=== PATIENT | male | born 1960 | race Caucasian/White ===

== ENCOUNTER 2017-05-12 15:56 | Emergency (ER) | payer OTHER ==
[~2017-05-12] VITALS: Ht 182.9 cm; Wt 154.2 kg
--- NOTE | ~2017-05-12 | EKG ---
[place] [address] [facility] [place] [address] ELECTROCARDIOGRAM REPORT Name: ELIEZER STEWART Room #: DEP VIPUL Munoz#: [id number] Admission: 05/12/17 Attend Phys: Discharge: 05/12/17 Date of : 62 Report #: [id number] THIS REPORT FOR: //name// [facility] ED Test Date: 2017-05-12 Test Time: 16:15:26 Pat Name: ELIEZER STEWART Department: Room: Gender: Crab Steamer: JULES : 1960 Requested By: Cullen Preciado Order Number: [id number] MD: Albert Chávez Measurements Intervals [place] Rate: 70 P: 17 NE: 45 QRS: 40 QRSD: 106 T: 38 QT: 383 QTc: 414 Interpretive Statements Sinus rhythm Short NE interval Probable anteroseptal infarct, old No previous ECG available for comparison Electronically Signed On 05-13-2017 7:54:32 CDT by Albert Chávez [email or web address] <ELECTRONICALLY SIGNED> By: Albert Chávez MD, [facility] 05/13/17 0754 1615 1615 Albert Chávez MD, FACC /EPI
[2017-05-12 16:32] LABS: HEMATOCRIT 40.5 % (42.0-52.0); HEMOGLOBIN 13.7 gm/dL (14.0-18.0); MCH 30.3 pg (26.0-34.0); MCHC 33.9 g/dL (28.0-37.0); MCV 89.3 fL (80.0-100.0); RBC 4.54 mil/uL (4.50-6.00); RDW 13.2 % (10.5-14.5); WBC 7.2 thou/uL (4.0-11.0)
[2017-05-12 16:47] LABS: ANION GAP 7 mmol/L (7-16); BUN 16 mg/dL (7-18); CALCIUM 9.3 mg/dL (8.5-10.1); CHLORIDE 104 mmol/L (98-107); CO2 29 mmol/L (21-32); CREATININE 1.3 mg/dL (0.7-1.3); GLUCOSE 116 mg/dL (74-106); POTASSIUM 4.1 mmol/L (3.5-5.1); SODIUM 140 mmol/L (136-145)
[2017-05-12 16:55] LABS: TROPONIN-I < 0.04 ng/mL (<0.04-0.07)
[2017-05-12 17:35] VITALS: BP 138/67
== END 2017-05-12 18:42 | disposition home or self-care (01) ==
LOC: ER 15:56
PROVIDERS: Emergency Medicine
DX: I10 Essential (primary) hypertension (principal); R51 Headache; Z88.0 Allergy status to penicillin

== ENCOUNTER 2020-06-29 21:48 | Inpatient (IN) | payer OTHER ==
[~2020-06-29] VITALS: Ht 238.8 cm; Wt 108.9 kg
[2020-06-29 21:53] VITALS: BP 147/68
[2020-06-29] MEDS ORDERED: PRINIVIL10 MG PO (21:59)
[2020-06-29] MEDS ORDERED: AMBIEN 10 MG TA10 MG PO (21:59)
[2020-06-29] MEDS ORDERED: AMLODIPINE PO (21:59)
[2020-06-29] MEDS ORDERED: [UNRECOGNIZED DRUG - REMARK] (22:00)
[2020-06-29 22:40] LABS: ABSOLUTE NEUTROPHILS 14.9 thou/uL (1.4-8.2); BASOPHILS 0.3 % (0.0-2.0); EOSINOPHILS 0.1 % (0.0-3.0); HEMATOCRIT 42.8 % (42.0-52.0); HEMOGLOBIN 14.3 gm/dL (14.0-18.0); MCH 29.8 pg (26.0-34.0); MCHC 33.5 g/dL (28.0-37.0); MCV 88.9 fL (80.0-100.0); MONOCYTES 7.6 % (1.0-8.0); PLATELET COUNT 254 thou/uL (150-400); RBC 4.82 mil/uL (4.50-6.00); RDW 13.3 % (10.5-14.5); WBC 17.9 thou/uL (4.0-11.0)
[2020-06-29 22:46] LABS: ANION GAP 12 mmol/L (7-16); BUN 11 mg/dL (7-18); CALCIUM 8.9 mg/dL (8.5-10.1); CHLORIDE 100 mmol/L (98-107); CO2 24 mmol/L (21-32); CREATININE 1.3 mg/dL (0.7-1.3); GLUCOSE 117 mg/dL (74-106); POTASSIUM 3.7 mmol/L (3.5-5.1); SODIUM 136 mmol/L (136-145)
[2020-06-29 22:51] LABS: URINE BILIRUBIN NEGATIVE (Negative); URINE BLOOD 2+ (Negative); URINE CLARITY CLEAR; URINE COLOR YELLOW; URINE GLUCOSE-RANDOM* NEGATIVE (Negative); URINE KETONES NEGATIVE (Negative); URINE LEUKOCYTES-REFLEX NEGATIVE (Negative); URINE NITRITE-REFLEX NEGATIVE (Negative); URINE PROTEIN (DIPSTICK) NEGATIVE (Negative); URINE SPECIFIC GRAVITY 1.025 (1.005-1.035); URINE UROBILINOGEN 0.2 E.U./dl (0.2-1.0)
[2020-06-29 22:56] LABS: ALBUMIN 4.1 g/dL (3.4-5.0); LIPASE 84 U/L (73-393); SGOT 17 U/L (15-37); SGPT 29 U/L (30-65); TOTAL BILIRUBIN 0.5 mg/dL (0.2-1.0); TOTAL PROTEIN 7.8 g/dL (6.4-8.2); TROPONIN-I <0.06 ng/mL (<0.06)
[2020-06-29 23:18] LABS: BACTERIA-REFLEX None Seen /HPF (None Seen); CASTS None Seen /LPF (None Seen); MUCUS 4-6 Moderate strn/LPF (None Seen); SQUAMOUS None Seen /LPF (0-3); URINE RBC 0-2 Rare /HPF (0-2); URINE WBC-REFLEX None Seen /HPF (0-5)
[2020-06-29 23:19] LABS: CRYSTALS None Seen /LPF (None Seen)
[2020-06-29] MEDS ORDERED: ZOLPIDEM TARTRA10 MG PO (23:47)
[2020-06-29] MEDS ORDERED: NORVASC5 MG PO (23:47)
[2020-06-29] MEDS ORDERED: LISINOPRIL20 MG PO (23:47)
[2020-06-29] MEDS ORDERED: TAPAZOLE10 MG PO (23:48)
[2020-06-30 01:08] VITALS: BP 143/72
[2020-06-30 01:52] VITALS: BP 159/69
[2020-06-30 02:38] VITALS: BP 143/69
--- NOTE | 2020-06-30 03:07 | NUR ---
PT ARRIVED TO THE UNIT FROM THE ER AT ABOUT 0200 HRS FOR GI BLEED.PT ALERT AND ORIENTED. HE IS STEADY ON HIS FEET HENCE NOT A FALL RISK. HE IS UP AD DIOGO.FALL EDUCATION PROVIDED AND CALL LIGHT AND NEEDED ITEMS WITHIN REACH. PT DENIES ANY DIZZINESS. HE STILL C/O ABDOMINAL CRAMPING AND BLOODY STOOLS. AFEBRILE.DENIES ANY COUGH OR SOA.NPO.IV ABTS,FLUIDS AND PROTONIX DRIP ON BOARD.PLAN FOR BLEEDING SCAN IN THE MORNING.WILL CONTINUE WITH POC TILL EOS.
[2020-06-30 06:52] LABS: HEMATOCRIT 41.3 % (42.0-52.0)
[2020-06-30 09:04] VITALS: BP 120/61
[2020-06-30 11:17] LABS: APTT 35.5 Seconds (24.5-32.8)
[2020-06-30 16:20] VITALS: BP 134/64
--- NOTE | 2020-06-30 18:41 | NUR ---
NEW ORDERS FOR CDIFF SO PATIENT HAS TO BE TAKEN INTO ISOLATION. WILL CONT WITH PLAN OF CARE.
[2020-06-30 21:50] VITALS: BP 130/77
--- NOTE | 2020-07-01 00:38 | NUR ---
PT AMBULATING TO BATHROOM INDEPENDENTLY AND IS TOLERATING WELL. DENIES NEED FOR PAIN MEDICATION. AMBIEN GIVEN FOR SLEEP. PLAN FOR EGD 07/01--BOWEL PREP COMPLETE. RESTING COMFORTABLY. NO NEEDS VOICED. CALL LIGHT WITHIN REACH. FREQUENT OBSERVATION.
[2020-07-01 01:42] VITALS: BP 143/63
[2020-07-01 03:15] LABS: HEMOGLOBIN 12.6 gm/dL (14.0-18.0); MCH 30.1 pg (26.0-34.0); MCV 88.6 fL (80.0-100.0); RBC 4.18 mil/uL (4.50-6.00); RDW 12.9 % (10.5-14.5)
[2020-07-01 03:25] LABS: ALBUMIN 3.3 g/dL (3.4-5.0); CALCIUM 8.2 mg/dL (8.5-10.1); MAGNESIUM 1.8 mg/dL (1.8-2.4); POTASSIUM 3.6 mmol/L (3.5-5.1); TOTAL BILIRUBIN 0.6 mg/dL (0.2-1.0); TOTAL PROTEIN 6.9 g/dL (6.4-8.2)
--- NOTE | 2020-07-01 05:09 | NUR ---
ASSUMED CARE OF PT FROM 4S AT 0130HRS. PT IS AOX4 AND UP AD DIOGO. PT IS NPO FOR EGD. ASSESSMENT CHARTED. PT WAS ABLE TO GET COMFORTABLE AND SLEEP PART OF THE SHIFT. VSS AND NO S/S OF ACUTE DISTRESS. WILL CONTINUE TO MONITOR.
--- NOTE | 2020-07-01 07:42 | EKG ---
[facility] [place] [address] ELECTROCARDIOGRAM REPORT Name: ELIEZER STEWART Room #: 454-P ADM IN M.R.#: [id number] Admission: 06/30/20 Attend Phys: Colleen Santiago MD Discharge: Date of : 62 Report #: [id number] THIS REPORT FOR: cc: Ge King MD, Douglas L. MD Lundgren, Craig H. MD [facility] ~ THIS REPORT FOR: //name// [facility] ED Test Date: 2020-06-29 Test Time: 22:59:57 Pat Name: ELIEZER STEWART Department: Room: [facility] Gender: M Rn Traveling: santi : 1960 Requested By: Laz Sandra Order Number: [id number] MD: Albert Chávez Measurements Intervals [place] Rate: 64 P: -21 [place]: 217 QRS: 25 QRSD: 102 T: 17 QT: 384 QTc: 396 Interpretive Statements Sinus rhythm Prolonged [place] interval Probable anteroseptal infarct, old Compared to ECG 05/12/2017 16:15:26 No significant change was found Electronically Signed On 07-01-2020 7:42:03 CDT by Albert Chávez [email or web address] <ELECTRONICALLY SIGNED> By: Albert Chávez MD, [facility] 07/01/20 0742 58 58 Albert Chávez MD, [facility] /EPI
[2020-07-01 08:37] VITALS: BP 133/63
--- NOTE | 2020-07-01 14:24 | NUR ---
PT ADMITTED RELATED TO GI BLEED. CM REVIWED CHART AND SPOKE WITH CARE TEAM. CM CALLED AND SPOKE WIHT PT OVER THE PHONE TODAY. PT APPEARED TO BE A&O X4. CM ROLE INTRODUCED. PT INDICIATED HE LIVES IN A HOUSE WITH HIS . PT INDICATED 2 STEPS TO ENTER AND NONE INSIDE. 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 PT INDICATED NO HH OR OP THERAPY HX. PT INDICATED HE PLANS TO RETURN HOME ONCE MEDICALLY STABLE. PT HAVING A NUD MED SCAN TODAY AND A COLONOSCOPY. CM TO FOLLOW INDICATED WITH DC PLANNING.
[2020-07-01 16:38] VITALS: BP 150/81
--- NOTE | 2020-07-01 17:56 | NUR ---
ASSUMED CARE OF PATIENT AT SHIFT CHANGE. ASSESSMENT CHARTED. IV INFUSION MEDS GIVEN PER NPO STATUS. PATIENT IS A&OX4 AND GETS UP INDEPENDENTLY; MAKES NEEDS KNOWN. PATIENT WAS NPO THIS AM FOR A SCOPE BUT PROVIDER NOTIFIED PATIENT THAT THIS PROCEDURE WAS MOVED TO 07/02. PATIENT WAS PUT ON CLEAR LIQUID DIET AND TOLERATES WELL W NO NAUSEA OR VOMITING. PATIENT ACCIDENTALLY PULLED IV OUT; NEW IV IN PLACE ONR FA INFUSIG W PROTONIX AND NS W NO ISSUES. PATIENT INTRUCTED TO BOWEL PREP AGAIN TONIGHT AND WILL BE NPO. PATIENT IS COMPLIANT. VOICES NO OTHER NEEDS AT THIS TIME. WILL CONTINUE TO MONITOR
--- NOTE | 2020-07-01 18:10 | NUR ---
I AGREE WITH NURSING ASSESSMENT AND NURSING NOTE DONE BY FRANCO/RESTAURANT MGR.
[2020-07-01 20:23] VITALS: BP 141/70
--- NOTE | 2020-07-02 03:57 | NUR ---
ASSUMED CARE OF PT AT 1900HRS. PT AOX4 AND LETS NEEDS BE KNOWN. PT IS INDEPENDENT IN HIS ROOM. COVID TEST COMPLETED. PT COMPLETED BOWEL PREP. PT PLACED NPO AT KS FOR PROCEDURE. PT DENIED ANY BLOODY STOOLS THIS SHIFT. PT DENIED PAIN, NAUSEA OR SOA. ASSESSMENT CHARTED. PT WAS ABLE TO GET COMFORTABLE AND SLEEP PART OF THE SHIFT. VSS AND NO S/S OF ACUTE DISTRESS. WILL CONTINUE TO MONITOR.
[2020-07-02 06:13] LABS: HEMATOCRIT 37.1 % (42.0-52.0); HEMOGLOBIN 12.7 gm/dL (14.0-18.0); MCH 30.5 pg (26.0-34.0); MCHC 34.3 g/dL (28.0-37.0); RBC 4.17 mil/uL (4.50-6.00); RDW 13.2 % (10.5-14.5)
[2020-07-02 08:00] VITALS: BP 131/70
[2020-07-02 08:15] VITALS: BP 131/70
[2020-07-02 10:00] VITALS: BP 127/80
--- NOTE | 2020-07-02 13:05 | NUR ---
Received awake on bed. Due medications given as prescribed, able to swallow meds w/o difficulty. On room air. Vital signs stable. On NPO- pt informed and aware. On MS, not on telemetry; no complains and signs of chest pain, crushing sensation and heaviness. For EGD/Colonoscopy today- consent signed;bowel prep done as well. Continent of bowel and bladder, able to use urinal and go to the toilet independently. Up ad lake. With NS at 100cc/hr, infusing well at R FA; on IV protonix as well. Still a/w sample for Cdiff, maintained on isolation. Brought down at GI lab via wheelchair, tolerated procedure well- back to room safely. Dr Villarreal informed that procedure done; possible discharge, a/w orders.
[2020-07-02 14:30] VITALS: BP 118/74
[2020-07-02 14:44] VITALS: BP 127/80
--- NOTE | 2020-07-03 12:30 | HC ---
[facility] [place] [address] CONSULTATION Name: ELIEZER STEWART Room #: 454-P [facility] IN M.R.#: [id number] Admission: 06/30/20 Attend Phys: Colleen Santiago MD Discharge: 07/02/20 Date of : 62 Report #: [id number] THIS REPORT FOR: cc: Ge King MD, Douglas L. MD McElhinney, Christian C. MD ~ CC: Ge Santiago DATE OF SERVICE: 06/30/2020 HISTORY OF PRESENT ILLNESS: The patient is a 60-year-old male began having crampy abdominal pain yesterday. This was followed by diarrhea and then hematochezia. No previous history of GI bleed. Reportedly, he had a colonoscopy 3 years ago that was essentially negative. He did report some possible fevers. Denies any chills. Episode of nausea and vomiting x 1. Did not change his diet dramatically. His and himself ate the same meal recently and she is fine. He was noted to have a high white count on admission of 17.9. CT scan of the abdomen and pelvis yesterday shows a thick-walled appearance to the left colon including the descending and sigmoid colon, most prominent in the sigmoid colon with marked mural thickening suggesting a colitis. Otherwise, essentially normal. The patient has been started on Cipro and Flagyl. He is feeling somewhat better today. Denies any blood as of yet this morning. He is n.p.o. at this time. PAST MEDICAL HISTORY: Hypertension, hypothyroidism, history of skin cancer, melanoma, status post resection. REVIEW OF SYSTEMS: As per HPI. FAMILY HISTORY: Negative for colon cancer or inflammatory bowel disease. SOCIAL HISTORY: He denies any tobacco use. He reports occasional alcohol use. PHYSICAL EXAMINATION: VITAL SIGNS: Temperature is 36.4, pulse 61, blood pressure 120/61, and respiratory rate is 16. GENERAL: He is alert and oriented x 3, in no acute distress. HEENT: Sclerae nonicteric. Oropharynx clear. NECK: Supple, without lymphadenopathy. CARDIOVASCULAR: Regular rate and rhythm. CHEST: Clear to auscultation bilaterally. ABDOMEN: Soft. He is mildly tender to palpation in the left side, nondistended, normoactive bowel sounds. EXTREMITIES: No cyanosis, clubbing or edema. [address] [address] CONSULTATION Name: ELIEZER STEWART Room #: 454-P [facility] IN [facility]#: [id number] Admission: 06/30/20 Attend Phys: Colleen Santiago MD Discharge: 07/02/20 Date of : 62 Report #: [id number] LABORATORY DATA: WBC 17.9, hemoglobin 14.3 yesterday. Hemoglobin today is 14.0, platelet count 254. Sodium 136, potassium 3.7, chloride 100, bicarbonate 24, BUN 11, creatinine 1.3, glucose 117, calcium 8.9, total bilirubin 0.5, AST 17, ALT is 29, alkaline phosphatase 75. Troponin less than 0.06. Total protein 7.8, albumin 4.1, and lipase 84. TSH is 2.0. ASSESSMENT AND PLAN: Abdominal pain, hematochezia, and diarrhea. CT is showing left-sided colitis. I explained to the patient this may represent ischemic colitis based on location, also need to consider infectious etiology. He is on Cipro and Flagyl at this time. He does have an elevated white count. I would recommend prepping the patient later today for colonoscopy tomorrow for further evaluation to obtain biopsies. We will start clear liquids today as well. Continue to monitor for signs of bleeding. Currently, hemoglobin is stable. Thank you for allowing me to participate in his care. <ELECTRONICALLY SIGNED> By: Noé Becerra MD 07/03/20 1230 1055 1335 Noé Becerra MD /nt
--- NOTE | 2020-07-04 16:06 | PATH ---
[facility] [address] [address] PATHOLOGY RPT PROCEDURE Name: TERRYELIEZER Room #: 454-P DIS IN M.R.#: [id number] Admission: 06/30/20 Date of : 62 Discharge: 07/02/20 Report #: [id number] Path Case #: [id number] [facility] Accession Number: [id number] . 01 Material submitted: . splenic flexure - BX OF SPLENIC FLEXURE . 01 Clinical history: . RECTAL BLEEDING, R/T SEVERITY OF INFLAMMATION . 02 Diagnosis: Large intestinal mucosa, splenic flexure, endoscopic biopsy: - Subtle lamina propria fibrosis with hemorrhage and reactive hyperplastic changes within the overlying epithelium. - Negative for active cryptitis. - Negative for microscopic colitis. - Negative for dysplasia or malignancy. (IUV:knit tubing dyer; 07/04/2020) MBR 07/04/2020 1355 Local . 02 Comment: The differential diagnosis includes a resolved episode of ischemic colitis, resolving diverticulitis, medication or drug induced colitis amongst other possibilities. There is no evidence of dysplasia or malignancy present. (IUV:knit tubing dyer; 07/04/2020) . 02 Electronically signed: . Radha Ramirez MD, Pathologist NPI- [id number] . 01 Gross description: . The specimen is received in formalin, labeled "Eliezer Stewart, biopsy of splenic flexure, R/T severity of inflammation". Received are three segments of pale lopez soft tissue ranging in size from 0.3 to 0.4 cm in maximum dimensions. The specimen is submitted entirely in cassette A1. (CAA; 07/03/2020) QAC/QAC 07/03/2020 1628 Local . 02 Pathologist provided ICD-10: K92.2 . 02 CPT . 329699 Specimen Comment: A courtesy copy of this report has been sent to [phone], 1[facility] [place] Specimen Comment: [phone] [address] PATHOLOGY RPT PROCEDURE Name: ELIEZER STEWART Room #: 454-P [facility] IN [facility].#: [id number] Admission: 06/30/20 Date of : 62 Discharge: 07/02/20 Report #: [id number] Path Case #: [id number] Specimen Comment: Report sent to / DR DAVIS Performed at: 01 [facility] Roxane Parkinson [address], [place], [place] [id number] MD Arash Augustine MD Phone: [phone] Performed at: [address] [id number] MD Radha Ramirez MD Phone: [phone]
== END 2020-07-02 15:37 | disposition home or self-care (01) | DRG 394 ==
LOC: ER 21:48 → 4W 06-30 01:40 → 4S 06-30 01:40 → EROBS 06-30 01:40 → 4S 06-30 02:04 → 4W 07-01 01:30
PROVIDERS: Emergency Medicine; Hospitalist; Nurse Practitioner Family; ADMIT Internal Medicine; ATTEND Internal Medicine
PROC: 0DBN8ZX Excision of Sigmoid Colon, Via Natural or Artificial Opening Endoscopic, Diagnostic (ICD-10-PCS; principal; 2020-07-02)
PROC: 0DBM8ZX Excision of Descending Colon, Via Natural or Artificial Opening Endoscopic, Diagnostic (ICD-10-PCS; principal; 2020-07-02)
DX: K55.9 Vascular disorder of intestine, unspecified (principal); K56.7 Ileus, unspecified; Z20.828 Contact with and (suspected) exposure to other viral communicable diseases; I10 Essential (primary) hypertension; K52.9 Noninfective gastroenteritis and colitis, unspecified; G47.00 Insomnia, unspecified; E03.9 Hypothyroidism, unspecified; K64.8 Other hemorrhoids; Z88.0 Allergy status to penicillin; Z85.828 Personal history of other malignant neoplasm of skin; Z85.820 Personal history of malignant melanoma of skin
CPT/HCPCS: 10040; 10195; 62110; 62900; 70005